=== PATIENT | female | born 2000 | race Caucasian/White ===

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

== ENCOUNTER 2022-05-05 12:29 | Emergency (ER) | payer MEDICAID ==
[~2022-05-05] VITALS: Ht 152.4 cm; Wt 55.0 kg
[2022-05-05 12:36] VITALS: BP 98/65
[2022-05-05] MEDS ORDERED: ACET-2708 PO (15:32)
[2022-05-05 16:36] LABS: CLARITY URINE CLOUDY (CLEAR); COLOR URINE DARK YELLOW (YELLOW); KETONES URINE TRACE (NEGATIVE); LEUKOCYTE ESTERASE URINE 2+ (NEGATIVE); NITRITE URINE NEGATIVE (NEGATIVE); OCCULT BLOOD URINE 2+ (NEGATIVE); PH URINE 6.5 (4.5-8.0); PROTEIN URINE 1+ (NEGATIVE); SPECIFIC GRAVITY URINE 1.029 (1.005-1.030)
== END 2022-05-05 15:47 | disposition home or self-care (01) ==
LOC: ER 13:17
DX: S31.41XA Laceration without foreign body of vagina and vulva, initial encounter (principal); X58.XXXA Exposure to other specified factors, initial encounter; Y93.89 Activity, other specified; Y92.89 Other specified places as the place of occurrence of the external cause; Y99.8 Other external cause status
CPT/HCPCS: 81003; 99284

== ENCOUNTER 2022-08-30 21:12 | Emergency (ER) | payer MEDICAID ==
[~2022-08-30] VITALS: Ht 162.6 cm; Wt 53.0 kg
[~2022-08-30 21:12] MED LIST: ACET-2708 PO
[2022-08-30 21:31] VITALS: BP 99/66
== END 2022-08-31 04:24 | disposition left against medical advice (07) ==
LOC: ER 21:12
DX: Z53.21 Procedure and treatment not carried out due to patient leaving prior to being seen by health care provider (principal)

== ENCOUNTER 2023-09-27 09:36 | Emergency (ER) | payer MEDICAID ==
[~2023-09-27] VITALS: Ht 160 cm; Wt 54.0 kg
[2023-09-27 09:43] VITALS: BP 89/59; RESP 18; TEMP 98; O2SAT 100
[2023-09-27 09:44] VITALS: PULSE 92
[2023-09-27 10:12] LABS: CLARITY URINE CLEAR (CLEAR); COLOR URINE YELLOW (YELLOW); GLUCOSE URINE NEGATIVE (NEGATIVE); KETONES URINE NEGATIVE (NEGATIVE); LEUKOCYTE ESTERASE URINE 2+ (NEGATIVE); NITRITE URINE NEGATIVE (NEGATIVE); OCCULT BLOOD URINE NEGATIVE (NEGATIVE); PROTEIN URINE NEGATIVE (NEGATIVE); SPECIFIC GRAVITY URINE 1.014 (1.005-1.030)
[2023-09-27 10:38] LABS: SQUAMOUS EPITHELIAL CELL URINE 1+ /lpf (RARE/1+)
[2023-09-27 10:39] LABS: BACTERIA URINE TRACE; MUCUS URINE TRACE /lpf (< = 2+); RBC URINE 0-2 /hpf (0-2); YEAST URINE NONE SEEN
[2023-09-27] MEDS ORDERED: CEFTRIAXONE SODIUM 500 MG/VIAL IM ONE (10:45)
[2023-09-27] MEDS ORDERED: DOXYCYCLINE HYCLATE 100MG CAPSULE PO ONE (10:45)
[2023-09-27] MEDS ORDERED: DOXY100C5 MT (11:08)
[2023-09-27] MEDS ORDERED: CEPH500C2 MT (11:10)
[2023-09-27] MEDS ORDERED: LIDOCAINE HCL/PF 1% 10 MG/ML 5ML VIAL INFIL ONE (11:15)
[2023-09-27 11:32] LABS: HCG SCREEN NEGATIVE
== END 2023-09-27 15:15 | disposition home or self-care (01) ==
LOC: ER 09:36
DX: N39.0 Urinary tract infection, site not specified (principal); Z88.8 Allergy status to other drugs, medicaments and biological substances; Z98.890 Other specified postprocedural states
CPT/HCPCS: 81003; 81025; 84703; 96372; 99283; J0696; J3490; Z7610

== ENCOUNTER 2023-09-30 11:52 | Emergency (ER) | payer MEDICAID ==
[~2023-09-30] VITALS: Ht 160 cm; Wt 55.0 kg
[~2023-09-30 11:52] MED LIST changes: +CEPH500C2 MT; +DOXY100C5 MT
[2023-09-30 11:58] VITALS: O2SAT 99
[2023-09-30 12:44] LABS: CLARITY URINE CLOUDY (CLEAR); COLOR URINE YELLOW (YELLOW); GLUCOSE URINE NEGATIVE (NEGATIVE); KETONES URINE NEGATIVE (NEGATIVE); LEUKOCYTE ESTERASE URINE 1+ (NEGATIVE); NITRITE URINE NEGATIVE (NEGATIVE); OCCULT BLOOD URINE NEGATIVE (NEGATIVE); PH URINE 7.5 (4.5-8.0); PROTEIN URINE NEGATIVE (NEGATIVE); SPECIFIC GRAVITY URINE 1.021 (1.005-1.030)
[2023-09-30 13:15] LABS: BACTERIA URINE 1+; SQUAMOUS EPITHELIAL CELL URINE 3+ /lpf (RARE/1+); WBC URINE 0-2 /hpf (0-2)
[2023-09-30 13:16] LABS: RBC URINE 0-2 /hpf (0-2)
[2023-09-30] MEDS ORDERED: METR70GE5 VG (13:35)
[2023-09-30 14:18] VITALS: BP 112/78; PULSE 76; RESP 18; TEMP 98.1
== END 2023-09-30 14:18 | disposition home or self-care (01) ==
LOC: ER 11:52
DX: N76.0 Acute vaginitis (principal); F31.9 Bipolar disorder, unspecified; I95.9 Hypotension, unspecified
CPT/HCPCS: 81003; 81025; 87210; 99283; Z7610

== ENCOUNTER 2024-03-02 16:14 | Emergency (ER) | payer MEDICAID ==
[~2024-03-02] VITALS: Ht 160 cm; Wt 52.0 kg
[~2024-03-02 16:14] MED LIST changes: +METR70GE5 VG
[2024-03-02 16:24] VITALS: BP 110/65; PULSE 85; RESP 20; TEMP 98.3; O2SAT 99
== END 2024-03-02 23:02 | disposition left against medical advice (07) ==
LOC: ER 16:14
DX: Z30.432 Encounter for removal of intrauterine contraceptive device (principal); Z53.21 Procedure and treatment not carried out due to patient leaving prior to being seen by health care provider
CPT/HCPCS: 99281

== ENCOUNTER 2025-07-03 18:48 | Emergency (ER) | payer MEDICAID ==
[~2025-07-03] VITALS: Ht 160 cm; Wt 54.4 kg
[~2025-07-03 18:48] MED LIST changes: +METR70GE27 VG; -METR70GE5 VG
[2025-07-03 18:51] VITALS: O2SAT 100
[2025-07-03 18:52] VITALS: BP 109/48; PULSE 84; RESP 14; TEMP 36.7; O2SAT 98
== END 2025-07-03 21:20 | disposition left against medical advice (07) ==
LOC: ER 18:48
DX: M54.50 Low back pain, unspecified (principal); Z53.21 Procedure and treatment not carried out due to patient leaving prior to being seen by health care provider